=== PATIENT | female | born 1950 | race Caucasian/White ===

== ENCOUNTER 2016-08-28 12:23 | Emergency (ER) | payer OTHER ==
[2016-08-28 12:59] LABS: Bilirubin Negative (Negative); Blood, Urine Moderate (Negative); Glucose, Urine (Dipstick) Negative (Negative); Leukocyte Small (Negative); Nitrite Negative (Negative); Protein, Urine (Dipstick) Negative (Neg-Trace); Urobilinogen 0.2 mg/dL (0.2-1.0)
[2016-08-28 13:02] LABS: Clarity Slightly Cloudy (Clear)
[2016-08-28 13:03] LABS: Bacteria/HPF 1+ HPF (None Seen); WBC/HPF 21-50 HPF (0-3)
--- NOTE | 2016-08-28 13:56 | PICIS ---
[facility] EMERGENCY RECORD TRIAGE (FriAug 28, 2016 12:29 AWAT) TRIAGE NOTES: R/O RIGHT EAR PAIN, AND RIGH SIDE OF FACE, AND THROAT, AND UTI S/S, ONSET YESTERDAY. (FriAug 28, 2016 12:29 AWAT) PATIENT: NAME: Lisseth Maurice, AGE: 66, GENDER: female, : Fri1950, TIME OF GREET: FriAug 28, 2016 12:25, PREFERRED LANGUAGE: Croatian, ETHNICITY: Not or , FALL RISK: NO, ECODE BILLING MAP: [facility], SSN: [id number], Zip Code: [address], KG WEIGHT: [phone], PHONE: , , , PERSON ID: [id number], PCP: MD Shay Olayemi. (FriAug 28, 2016 12:29 AWAT) COMPLAINT: RT EAR & FACE PAIN,POSS BLADDER INFECTION. (FriAug 28, 2016 12:29 AWAT) ADMISSION: URGENCY: 4 Non Urgent, ADMISSION SOURCE: Home, TRANSPORT: Walk-in, BED: TRIAGE. (FriAug 28, 2016 12:29 AWAT) IMMUNIZATIONS: Flu vaccine up to date, Tetanus not up to date, Pneumococcal vaccine up to date. (12:36 AWAT) SIRS SCORING: Heart Rate 55-109 (0), Temp range 96.8-101.1 (0), respiratory rate 12-24 (0), Mental Status altered: no (0). (12:36 AWAT) TRIAGE SCREENING: Patient denies suicidal ideation, Patient denies presence of domestic violence. (12:36 AWAT) TREATMENTS IN PROGRESS: Treatments given Prehospital: TYLENOL 500MG X 2. (12:36 AWAT) PROVIDERS: TRIAGE NURSE: Pieter Lindsey RN. (FriAug 28, 2016 12:29 AWAT) PREVIOUS VISIT ALLERGIES: Hydromorphone. (FriAug 28, 2016 12:29 AWAT) Hydromorphone. (12:36 AWAT) KNOWN ALLERGIES hydromorphone: Reaction: Nausea CURRENT MEDICATIONS lisinopril: TABLET : Strength - 20 mg : ORAL Patient Dose: 1 tab(s) Oral 2 times a day. (12:30 AWAT) Lasix: TABLET : Strength - 20 mg : ORAL Patient Dose: 1 tab(s) Oral 2 times a day. (12:30 AWAT) nitroglycerin: TABLET, SUBLINGUAL : Strength - 0.4 mg : SUBLINGUAL Patient Dose: 1 tab(s) Sublingual As Needed. (12:30 AWAT) Ventolin HFA: HFA AEROSOL WITH ADAPTER (GRAM) : Strength - 90 mcg : INHALATION Patient Dose: 2 puff(s) Oral every 4 hours prn. (12:30 AWAT) Spiriva with HandiHaler: CAPSULE, WITH INHALATION DEVICE : Strength - 18 mcg : INHALATION Patient Dose: 1 cap(s) Nebulize once a day (in the &a-1R&a+25V*p+0X*i7710D*c202B*c15G*c2P*p-0X&a-25V&a+1R Name: Lisseth Maurice : 1950 F66 MedRec: [id number] AcctNum: [id number] Prepared: FriAug 28, 2016 14:37 by Interface Page 1 of 7 pMD [facility] EMERGENCY RECORD morning). (12:30 AWAT) meTOPROLOL tartrate: TABLET : Strength - 100 mg : ORAL Patient Dose: 1 tab(s) Oral once a day. (12:31 AWAT) hydrochlorothiazide: TABLET : Strength - 25 mg : ORAL Patient Dose: 1 tab(s) Oral once a day. (12:31 AWAT) glipiZIDE: TABLET : Strength - 10 mg : ORAL Patient Dose: Unknown. (12:40 AWAT) TABLET : Strength - 5 mg : ORAL Patient Dose: 1 tab(s) Oral once a day. (12:40 AWAT) VITAL SIGNS (12:31 AWAT) VITAL SIGNS: BP: 195/60, Pulse: 52, Resp: 18, Temp: 97.1 (Tympanic), Pain: 9, O2 sat: 96 on Room Air, Time: 08/28/2016 12:31. NURSING ASSESSMENT: ENT (12:37 AWAT) PAIN: throbbing pain, to the right ear, constant, on a scale 0-10 patient rates pain as 9, Pain exacerbated by, cough. ENT: Ear assessment findings include ear normal to inspection, Mouth and throat assessment findings include mouth inspection normal, no associated fever. RESPIRATORY/CHEST: Breath sounds clear, Respiratory assessment findings include respiratory effort easy, Respirations regular, Conversing normally, Neck and chest exam findings include trachea midline, Chest expansion equal, Chest movement symmetrical, no signs of distress, Associated with cough, dry, no associated fever. SAFETY: Side rails up, Cart/Stretcher in lowest position, Family at bedside, Call light within reach, Hospital ID band on. NURSING ASSESSMENT: GENITOURINARY (12:36 AWAT) CONSTITUTIONAL: Patient arrives ambulatory, Gait steady, History obtained from patient, Patient appears comfortable, Patient cooperative, Patient alert, Oriented to person, place and time, Skin warm, Skin dry, Patient complains of FREQUENCY, SPASM, CALL AFTER URINATION. GENITOURINARY FEMALE: Associated with urinary complaints, burning, frequency. SAFETY: Side rails up, Cart/Stretcher in lowest position, Family at bedside, Call light within reach, Hospital ID band on. NURSING PROCEDURE: BEDSIDE TESTING (13:27 ER) PATIENT IDENTIFIER: Patient actively involved in identification process, Patient's identity verified by patient stating name, Patient's identity verified by patient stating date. GLUCOSE: Glucose testing indicated for diabetic patient, Venous &a-1R&a+25V*p+0X*j0330W*c202B*c15G*c2P*p-0X&a-25V&a+1R Name: Lisseth Maurice : 1950 F66 MedRec: [id number] AcctNum: [id number] Prepared: FriAug 28, 2016 14:37 by Interface Page 2 of 7 pMD [facility] EMERGENCY RECORD blood sample, Result (mg/dl) 137. Glucose testing indicated for diabetic patient, Venous blood sample, Result (mg/dl) 137. NURSING PROCEDURE: DISCHARGE NOTE (13:31 ER) DISCHARGE: Patient discharged to home, ambulating without assistance, driving self, accompanied by friend, Summary of Care printed/ provided, Discharge instructions given to patient, Simple or moderate discharge teaching performed, Prescriptions given and instructions on side effects given, Name of prescription(s) given: CIPRO,CORTISPORIN OTIC, PYRIDIUM, ULTRAM, Above person(s) verbalized understanding of discharge instructions and follow-up care. BELONGINGS: Belongings remain with patient, Valuables remain with patient. NURSING PROCEDURE: NURSE NOTES (12:42 ER) NURSES NOTES: Notes: PATIENT TRIAGED, AND ASSESSMENT DONE BY STAN SMITH, CHARTED BY MISTAKE UNDER PIETER RN NAME. ORDER DETAILS Order Name: BLOOD GLUCOSE MONITOR, Status: Done, Time: 13:33 08/28/2016, User: ER, - Ordered for: MD Melton Stanley, - Entered by: MD Melton Stanley - [facility] Aug 28, 2016 13:19, - Quantity: 1, Order Name: Culture, Urine, Status: Active, Time: 12:29 08/28/2016, User: YUE, - Ordered for: MD Melton Stanley, - Entered by: MD Melton Stanley - [facility] Aug 28, 2016 12:29, - Quantity: 1, Order Name: Urinalysis w/ Rflx Microscopic, Status: Active, Time: 12:29 08/28/2016, User: YUE, - Ordered for: MD Melton Stanley, - Entered by: MD Melton Stanley - [facility] Aug 28, 2016 12:29, - Quantity: 1. HPI EAR PAIN (12:41 YUE) CHIEF COMPLAINT: Patient presents for evaluation of pain, to the right ear, Patient presents for evaluation of c/o right ear pain and pain on urinating. HISTORIAN: History provided by patient, History provided by patient's family. TIME COURSE: going on for 2 or 3 days; was recently on augmentin for bronchtitis. EXACERBATED BY: Patient's condition exacerbated by nothing. RELIEVED BY: Patient's condition relieved by nothing. ROS CONSTITUTIONAL: Negative constitutional review of systems, &a-1R&a+25V*p+0X*y0439L*c202B*c15G*c2P*p-0X&a-25V&a+1R Name: Lisseth Maurice : 1950 F66 MedRec: [id number] AcctNum: [id number] Prepared: FriAug 28, 2016 14:37 by Interface Page 3 of 7 pMD [facility] EMERGENCY RECORD Historian denies chills, denies fever. (12:42 SHAN) EYES: Negative eye review of systems. (12:42 SHAN) ENT: right ear pain. (12:42 SHAN) CARDIOVASCULAR: Negative cardiovascular review of systems, Historian denies chest pain, denies palpitations. (12:42 SHAN) RESPIRATORY: Negative respiratory review of systems, Historian denies cough, denies shortness of breath. (12:42 SHAN) GI: Negative gastrointestinal review of systems, Historian denies abdominal pain, denies constipation, denies diarrhea. (12:42 SHAN) GENITOURINARY FEMALE: c/o pain on urinating. (12:43 SHAN) MUSCULOSKELETAL: Negative musculoskeletal review of systems. (12:42 SHAN) SKIN: Negative skin review of systems. (12:42 SHAN) NEUROLOGIC: Negative neurologic review of systems. (12:42 SHAN) ENDOCRINE: Negative endocrine review of systems. (12:42 SHAN) HEMO/LYMPHATIC: Normal hematologic/lymphatic system review. (12:42 SHAN) PSYCHIATRIC: Negative psychiatric review of systems. (12:42 SHAN) NOTES: All other ROS is negative except as listed in HPI. (12:42 SHAN) PAST MEDICAL HISTORY MEDICAL HISTORY: Past medical history includes history of diabetes, Notes: DIVERTICULITIS, Past medical history includes cardiac history, congestive heart failure, Past medical history includes history of hypertension, which has been treated, Past medical history includes pulmonary disease, chronic obstructive pulmonary disease, emphysema. 08/28/15. (12:36 AWAT) FEMALE SURGICAL HISTORY: CARDIAC STENT X2. PINS LEFT ARM, Surgical history of hysterectomy. 08/28/16. (12:36 AWAT) PSYCHIATRIC HISTORY: Notes: DEPRESSION. 08/28/16. (12:36 AWAT) SOCIAL HISTORY: Patient drinks socially, Patient denies drug use, Patient currently uses tobacco, smokes cigarettes, daily, Patient smokes 1 pack per day. (12:36 AWAT) NOTES: I have reviewed and agree with the PMH/PSxH/FamHx/SocHx obtained by the nurse. (12:42 SHAN) PHYSICAL EXAM (12:42 SHAN) CONSTITUTIONAL: Vital signs reviewed, Patient appears non toxic, Patient alert and oriented to person, place and time, Pt is in no apparent distress. HEAD: Head exam included findings of head atraumatic, normocephalic. EYES: Eye exam included findings of eyelids normal to inspection, Pupils equally round and reactive to light, Extraocular muscles intact. ENT: Nose exam normal, no nasal deformity, no bleeding from nares, Pharynx exam normal, Mouth exam normal, mucous membranes &a-1R&a+25V*p+0X*r7273U*c202B*c15G*c2P*p-0X&a-25V&a+1R Name: Lisseth Maurice : 1950 F66 MedRec: [id number] AcctNum: [id number] Prepared: FriAug 28, 2016 14:37 by Interface Page 4 of 7 pMD [facility] EMERGENCY RECORD moist, right tm dulled; a little red; right ear canal with redness also though. NECK: Neck exam included findings of normal range of motion, Trachea midline. RESPIRATORY CHEST: Respiratory and chest exam normal, Breath sounds clear, No wheezing, No rales, Chest exam included findings of chest movement symmetrical, Chest expansion equal. CARDIOVASCULAR: Cardiovascular assessment normal, Cardiovascular exam included findings of heart rate regular rate and rhythm, Heart sounds normal. ABDOMEN FEMALE: Abdominal exam included findings of abdomen nontender, Bowel sounds normal, no mass, no pulsatile masses, no peritoneal signs. BACK: Back exam included findings of normal inspection, range of motion normal, no costovertebral angle tenderness. UPPER EXTREMITY: Upper extremity exam included findings of inspection normal, Range of motion normal. LOWER EXTREMITY: Lower extremity exam included findings of inspection normal, Range of motion normal. NEURO: Neuro exam findings include patient oriented to person, place and time, Speech normal, no focal motor deficits, no focal sensory deficits. SKIN: Skin exam included findings of skin warm, dry, and normal in color. LYMPHATIC: Lymphatic exam normal. PSYCHIATRIC: Psychiatric exam included findings of patient oriented to person place and time, Normal affect. EVENTS TRANSFER: Triage to Emergency Triage. (12:29 AWAT) Emergency Triage to Main ED -04. (12:34 AWAT) Removed from Emergency Main ED -04. (13:38 ER) DOCTOR NOTES (13:19 SHAN) TEXT: Polyuria, dysuria, diabetic, right ear pain. Recent augmentin treatment. Ua is abnormal; right canal and rodri suspicious for infection. PATIENT PLAN: The patient will be discharged. DATA REVIEWED: Lab data reviewed. PROBLEM LIST No recorded problems DIAGNOSIS (13:21 SHAN) FINAL: PRIMARY: UTI, ADDITIONAL: right purulent otitis media. DISPOSITION PATIENT: Disposition Type: Discharge, Disposition: *Discharge Home. (13:21 SHAN) &a-1R&a+25V*p+0X*h5416J*c202B*c15G*c2P*p-0X&a-25V&a+1R Name: Lisseth Maurice : 1950 F66 MedRec: [id number] AcctNum: [id number] Prepared: FriAug 28, 2016 14:37 by Interface Page 5 of 7 pMD [facility] EMERGENCY RECORD Patient left the department. (13:37 ER) INSTRUCTION (13:25 SHAN) DISCHARGE: URINARY TRACT INFECTION CYSTITIS FEMALE ADULT, OTITIS MEDIA, ABX TX (ADULT). FOLLOWUP: MD Laurita, Isabell, [facility], [address] [place] [address], . SPECIAL: 1. antibiotic as directed; take until gone 2. urine numbing pill three times a day until gone; expect urine to be orange. 3. followup with regular provider in a few days 4. return if problems worsen 5. note that a culture was set up and there is always a chance that a different antibiotic might be needed later. PRESCRIPTION Cipro tablet: TABLET : 500 mg : ORAL : Quantity: 1 Unit: tab(s) Route: ORAL Schedule: 2 times a day Dispense: 14 Unit: tab(s) May substitute. Refills: No Refills . (13:) NOTES: No Refills. (13: SHAN) Cortisporin otic: SOLUTION, NON-ORAL : 3.5 mg/mL-10,000 unit/mL-1 % : OTIC : Quantity: 2 Unit: gtt Route: OTIC Schedule: 4 times a day Dispense: 1 Unit: units May substitute. Refills: No Refills . (13:21 SHAN) NOTES: dispense 1 bottle No Refills. (13:21 SHAN) Pyridium: TABLET : 200 mg : ORAL : Quantity: 1 Unit: tab(s) Route: ORAL Schedule: 3 times a day Dispense: 9 Unit: tab(s) May substitute. Refills: No Refills . (13:22 SHAN) NOTES: expect urine to turn orange No Refills. (13:22 SHAN) Ultram: TABLET : 50 mg : ORAL : Quantity: 1 Unit: tab(s) Route: ORAL Schedule: every 6 hours PRN Dispense: 15 Unit: tab(s) May substitute. Refills: No Refills . (13:23 SHAN) NOTES: one up to every six hours if needed for pain; use sparingly No Refills. (13:23 SHAN) IMAGING (13:35 ER) *DISCHARGE INSTRUCTIONS RECEIPT: Image captured from scanner. Page 2 added. Image captured from scanner. *SUPPLY CHARGE SHEET: Image captured from scanner. ADMIN (14:26 SHAN) DIGITAL SIGNATURE: MD Melton Stanley. RESULTS &a-1R&a+25V*p+0X*s8654H*c202B*c15G*c2P*p-0X&a-25V&a+1R Name: Lisseth Maurice : 1950 F66 MedRec: [id number] AcctNum: [id number] Prepared: FriAug 28, 2016 14:37 by Interface Page 6 of 7 pMD [facility] EMERGENCY RECORD LABORATORY: Urine Microscopic Collection DT: FriAug 28, 2016 12:56, *RBC/HPF 7-10 - H HPF, Range (0-3), *WBC/HPF 21-50 - H HPF, Range (0-3), *Squamous Epithelial 7-10 - H HPF, Range (0-3), *Bacteria/HPF 1+ - H HPF, Range (None Seen). (13:13 SHAN) Urinalysis w/ Rflx Microscopic Collection DT: FriAug 28, 2016 12:56, Color Yellow , Range (Yellow), Clarity Slightly Cloudy , Range (Clear), Specific Patterson, Urine 1.010 , Range (1.005-1.030), pH, Urine 6.0 , Range (5.0-9.0), *Leukocyte Small - H , Range (Negative), Nitrite Negative , Range (Negative), Protein, Urine (Dipstick) Negative mg/dL, Range (Neg-Trace), Glucose, Urine (Dipstick) Negative mg/dL, Range (Negative), Ketone, Urine Negative mg/dL, Range (Negative), Urobilinogen 0.2 mg/dL, Range (0.2-1.0), Bilirubin Negative , Range (Negative), *Blood, Urine Moderate - H , Range (Negative). (13:13 YUE) Accuchek Collection DT: FriAug 28, 2016 13:31, *Accuchek 137 - H mg/dL, Range (70-110). (13:36 YUE) Otoole: BOUCHRA=STAN Lindsey, Pieter ER=Kymberly Schmitt=MD Linh, Koby &a-1R&a+25V*p+0X*l9583R*c202B*c15G*c2P*p-0X&a-25V&a+1R Name: Lisseth Maurice : 1950 F66 MedRec: [id number] AcctNum: [id number] Prepared: FriAug 28, 2016 14:37 by Interface Page 7 of 7 pMD MTDD
--- NOTE | 2016-08-28 14:02 | ERRECORD ---
[facility] EMERGENCY RECORD HPI EAR PAIN (12:41 SHAN) CHIEF COMPLAINT: Patient presents for evaluation of pain, to the right ear, Patient presents for evaluation of c/o right ear pain and pain on urinating. HISTORIAN: History provided by patient, History provided by patient's family. TIME COURSE: going on for 2 or 3 days; was recently on augmentin for bronchtitis. EXACERBATED BY: Patient's condition exacerbated by nothing. RELIEVED BY: Patient's condition relieved by nothing. ROS CONSTITUTIONAL: Negative constitutional review of systems, Historian denies chills, denies fever. (12:42 SHAN) EYES: Negative eye review of systems. (12:42 SHAN) ENT: right ear pain. (12:42 SHAN) CARDIOVASCULAR: Negative cardiovascular review of systems, Historian denies chest pain, denies palpitations. (12:42 SHAN) RESPIRATORY: Negative respiratory review of systems, Historian denies cough, denies shortness of breath. (12:42 SHAN) GI: Negative gastrointestinal review of systems, Historian denies abdominal pain, denies constipation, denies diarrhea. (12:42 SHAN) GENITOURINARY FEMALE: c/o pain on urinating. (12:43 SHAN) MUSCULOSKELETAL: Negative musculoskeletal review of systems. (12:42 SHAN) SKIN: Negative skin review of systems. (12:42 SHAN) NEUROLOGIC: Negative neurologic review of systems. (12:42 SHAN) ENDOCRINE: Negative endocrine review of systems. (12:42 SHAN) HEMO/LYMPHATIC: Normal hematologic/lymphatic system review. (12:42 SHAN) PSYCHIATRIC: Negative psychiatric review of systems. (12:42 SHAN) NOTES: All other ROS is negative except as listed in HPI. (12:42 SHAN) PAST MEDICAL HISTORY MEDICAL HISTORY: Past medical history includes history of diabetes, Notes: DIVERTICULITIS, Past medical history includes cardiac history, congestive heart failure, Past medical history includes history of hypertension, which has been treated, Past medical history includes pulmonary disease, chronic obstructive pulmonary disease, emphysema. 08/28/15. (12:36 AWAT) FEMALE SURGICAL HISTORY: CARDIAC STENT X2. PINS LEFT ARM, Surgical history of hysterectomy. 08/28/16. (12:36 AWAT) PSYCHIATRIC HISTORY: Notes: DEPRESSION. 08/28/16. (12:36 AWAT) SOCIAL HISTORY: Patient drinks socially, Patient denies drug use, Patient currently uses tobacco, smokes cigarettes, daily, Patient smokes 1 pack per day. (12:36 AWAT) NOTES: I have reviewed and agree with the PMH/PSxH/FamHx/SocHx &a-1R&a+25V*p+0X*w9963P*c202B*c15G*c2P*p-0X&a-25V&a+1R Name: Lisseth Maurice : 1950 F66 MedRec: [id number] AcctNum: [id number] Prepared: FriAug 28, 2016 14:31 by Interface Page 1 of 4 pMD [facility] EMERGENCY RECORD obtained by the nurse. (12:42 SHAN) KNOWN ALLERGIES hydromorphone: Reaction: Nausea CURRENT MEDICATIONS lisinopril: TABLET : Strength - 20 mg : ORAL Patient Dose: 1 tab(s) Oral 2 times a day. (12:30 AWAT) Lasix: TABLET : Strength - 20 mg : ORAL Patient Dose: 1 tab(s) Oral 2 times a day. (12:30 AWAT) nitroglycerin: TABLET, SUBLINGUAL : Strength - 0.4 mg : SUBLINGUAL Patient Dose: 1 tab(s) Sublingual As Needed. (12:30 AWAT) Ventolin HFA: HFA AEROSOL WITH ADAPTER (GRAM) : Strength - 90 mcg : INHALATION Patient Dose: 2 puff(s) Oral every 4 hours prn. (12:30 AWAT) Spiriva with HandiHaler: CAPSULE, WITH INHALATION DEVICE : Strength - 18 mcg : INHALATION Patient Dose: 1 cap(s) Nebulize once a day (in the morning). (12:30 AWAT) meTOPROLOL tartrate: TABLET : Strength - 100 mg : ORAL Patient Dose: 1 tab(s) Oral once a day. (12:31 AWAT) hydrochlorothiazide: TABLET : Strength - 25 mg : ORAL Patient Dose: 1 tab(s) Oral once a day. (12:31 AWAT) glipiZIDE: TABLET : Strength - 10 mg : ORAL Patient Dose: Unknown. (12:40 AWAT) TABLET : Strength - 5 mg : ORAL Patient Dose: 1 tab(s) Oral once a day. (12:40 AWAT) VITAL SIGNS (12:31 AWAT) VITAL SIGNS: BP: 195/60, Pulse: 52, Resp: 18, Temp: 97.1 (Tympanic), Pain: 9, O2 sat: 96 on Room Air, Time: 08/28/2016 12:31. PHYSICAL EXAM (12:42 SHAN) CONSTITUTIONAL: Vital signs reviewed, Patient appears non toxic, Patient alert and oriented to person, place and time, Pt is in no apparent distress. HEAD: Head exam included findings of head atraumatic, normocephalic. EYES: Eye exam included findings of eyelids normal to inspection, Pupils equally round and reactive to light, Extraocular muscles intact. ENT: Nose exam normal, no nasal deformity, no bleeding from &a-1R&a+25V*p+0X*o3684E*c202B*c15G*c2P*p-0X&a-25V&a+1R Name: Lisseth Maurice : 1950 F66 MedRec: [id number] AcctNum: [id number] Prepared: FriAug 28, 2016 14:31 by Interface Page 2 of 4 pMD [facility] EMERGENCY RECORD nares, Pharynx exam normal, Mouth exam normal, mucous membranes moist, right tm dulled; a little red; right ear canal with redness also though. NECK: Neck exam included findings of normal range of motion, Trachea midline. RESPIRATORY CHEST: Respiratory and chest exam normal, Breath sounds clear, No wheezing, No rales, Chest exam included findings of chest movement symmetrical, Chest expansion equal. CARDIOVASCULAR: Cardiovascular assessment normal, Cardiovascular exam included findings of heart rate regular rate and rhythm, Heart sounds normal. ABDOMEN FEMALE: Abdominal exam included findings of abdomen nontender, Bowel sounds normal, no mass, no pulsatile masses, no peritoneal signs. BACK: Back exam included findings of normal inspection, range of motion normal, no costovertebral angle tenderness. UPPER EXTREMITY: Upper extremity exam included findings of inspection normal, Range of motion normal. LOWER EXTREMITY: Lower extremity exam included findings of inspection normal, Range of motion normal. NEURO: Neuro exam findings include patient oriented to person, place and time, Speech normal, no focal motor deficits, no focal sensory deficits. SKIN: Skin exam included findings of skin warm, dry, and normal in color. LYMPHATIC: Lymphatic exam normal. PSYCHIATRIC: Psychiatric exam included findings of patient oriented to person place and time, Normal affect. DOCTOR NOTES (:19 ) TEXT: Polyuria, dysuria, diabetic, right ear pain. Recent augmentin treatment. Ua is abnormal; right canal and rodri suspicious for infection. PATIENT PLAN: The patient will be discharged. DATA REVIEWED: Lab data reviewed. PROBLEM LIST No recorded problems DIAGNOSIS (:) FINAL: PRIMARY: UTI, ADDITIONAL: right purulent otitis media. PRESCRIPTION Cipro tablet: TABLET : 500 mg : ORAL : Quantity: 1 Unit: tab(s) Route: ORAL Schedule: 2 times a day Dispense: 14 Unit: tab(s) May substitute. Refills: No Refills . (:) NOTES: No Refills. (:) Cortisporin otic: SOLUTION, NON-ORAL : 3.5 mg/mL-10,000 &a-1R&a+25V*p+0X*e3600R*c202B*c15G*c2P*p-0X&a-25V&a+1R Name: Lisseth Maurice : 1950 F66 MedRec: [id number] AcctNum: [id number] Prepared: FriAug 28, 2016 14:31 by Interface Page 3 of 4 pMD [facility] EMERGENCY RECORD unit/mL-1 % : OTIC : Quantity: 2 Unit: gtt Route: OTIC Schedule: 4 times a day Dispense: 1 Unit: units May substitute. Refills: No Refills . (: SHAN) NOTES: dispense 1 bottle No Refills. (: SHAN) Pyridium: TABLET : 200 mg : ORAL : Quantity: 1 Unit: tab(s) Route: ORAL Schedule: 3 times a day Dispense: 9 Unit: tab(s) May substitute. Refills: No Refills . (: SHAN) NOTES: expect urine to turn orange No Refills. (: SHAN) Ultram: TABLET : 50 mg : ORAL : Quantity: 1 Unit: tab(s) Route: ORAL Schedule: every 6 hours PRN Dispense: 15 Unit: tab(s) May substitute. Refills: No Refills . (13:23 YUE) NOTES: one up to every six hours if needed for pain; use sparingly No Refills. (13:23 YUE) DISPOSITION PATIENT: Disposition Type: Discharge, Disposition: *Discharge Home. (13:21 YUE) Patient left the department. (13:37 ER) Otoole: AWAT=STAN Lindsey, Pieter ER=Kymberly Schmitt=MD Linh, Koby &a-1R&a+25V*p+0X*b1353N*c202B*c15G*c2P*p-0X&a-25V&a+1R Name: Lisseth Maurice : 1950 F66 MedRec: [id number] AcctNum: [id number] Prepared: FriAug 28, 2016 14:31 by Interface Page 4 of 4 pMD MTDD
== END 2016-08-28 13:31 | disposition home or self-care (01) ==
LOC: MADERS 12:23
DX: H66.41 Suppurative otitis media, unspecified, right ear (principal); N39.0 Urinary tract infection, site not specified; F17.210 Nicotine dependence, cigarettes, uncomplicated; E11.9 Type 2 diabetes mellitus without complications; I11.0 Hypertensive heart disease with heart failure; I50.9 Heart failure, unspecified; J44.9 Chronic obstructive pulmonary disease, unspecified
CPT/HCPCS: 36416; 81003; 81015; 87077; 87086; 87186; 99283

== ENCOUNTER 2016-11-06 09:04 | Outpatient (CLI) | payer OTHER | END 2016-11-06 09:05 | LOC: MADLABBHPM 09:04 | PROVIDERS: ATTEND Family Medicine | DX: E78.5 Hyperlipidemia, unspecified (principal); E11.9 Type 2 diabetes mellitus without complications; F32.9 Major depressive disorder, single episode, unspecified | CPT/HCPCS: 36415; 87086 ==

== ENCOUNTER 2016-11-13 20:06 | Outpatient (CLI) | payer OTHER ==
[2016-11-13 20:52] LABS: #Basophils 0.1 thou/uL (0.0-0.2); #Eosinphils 0.3 thou/uL (0.0-0.7); #Monocytes 0.6 thou/uL (0.11-0.59); #Neutrophils 6.9 thou/uL (1.40-6.50); %Basophils 0.9 % (0.0-1.0); %Eosinophils 2.6 % (0.0-10.0); %Lymphocytes 33.7 % (21.0-51.0); %Monocytes 4.9 % (0.0-10.0); Hemoglobin 15.8 g/dL (12.0-16.0); Mean Corpuscular HGB CONC 32.9 g/dL (32.0-36.0); Mean Corpuscular Hemoglobin 30.8 pg (27.0-31.0); Mean Corpuscular Volume 93.5 fl (81.0-99.0); Mean Platelet Volume 11.1 fL (7.4-10.4); Platelet Count 210 thou/uL (130-400); RBC Distribution Width 12.8 % (11.5-14.5); Red Blood Cell (RBC) Count 5.13 mill/uL (4.20-5.40); White Blood Cell (WBC) Count 11.9 thou/uL (4.8-10.8)
[2016-11-13 21:07] LABS: ALT (SGPT) 26 U/L (0-55); AST (SGOT) 16 U/L (5-34); Albumin 4.1 g/dL (3.4-4.8); Alkaline Phosphatase 103 U/L (40-150); Anion Gap 16 mmol/L (10-20); BUN (Urea Nitrogen) 27 mg/dL (9.8-20.1); Bilirubin, Total 0.3 mg/dL (0.2-1.2); Calc. Creatinine Clearance 0 mL/min (70-130); Calcium 9.9 mg/dL (7.8-10.44); Carbon Dioxide 24 mmol/L (23-31); Cardiac Risk 4.1 (Less than 4.5); Chloride 103 mmol/L (98-107); Cholesterol 146 mg/dL (< 200 Desired); Estimated GFR-MDRD 50; Glucose 146 mg/dL (80-115); HDL Cholesterol 36 mg/dL (>60 Neg Risk); LDL Cholesterol, Calculated 77 mg/dL; Protein, Total 7.1 g/dL (5.8-8.1); Sodium 138 mmol/L (136-145); Triglycerides 166 mg/dL (Less than 150)
[2016-11-13 21:08] LABS: Hemoglobin A1c 8.4 % (4.0-6.0)
[2016-11-13 22:34] LABS: Free T4 (Free Thyroxine) 0.92 ng/dL (0.70-1.48); Thyroid Stimulating Hormone 1.3393 uIU/mL (0.35-4.94)
== END 2016-11-13 20:07 | disposition home or self-care (01) ==
LOC: MADLABBHPM 20:06
PROVIDERS: ATTEND Family Medicine
DX: E78.5 Hyperlipidemia, unspecified (principal); E11.9 Type 2 diabetes mellitus without complications; F32.9 Major depressive disorder, single episode, unspecified; I10 Essential (primary) hypertension
CPT/HCPCS: 36415; 80053; 80061; 83036; 84439; 84443; 85025

== ENCOUNTER 2016-11-18 06:49 | Emergency (ER) | payer OTHER ==
[2016-11-18] MEDS ORDERED: Aspirin 325 MG TAB ONE (07:20)
[2016-11-18 07:22] LABS: #Basophils 0.1 thou/uL (0.0-0.2); #Eosinphils 0.4 thou/uL (0.0-0.7); #Lymphocytes 5.6 thou/uL (1.20-3.40); #Monocytes 0.9 thou/uL (0.11-0.59); #Neutrophils 7.3 thou/uL (1.40-6.50); %Basophils 0.7 % (0.0-1.0); %Eosinophils 2.5 % (0.0-10.0); %Lymphocytes 39.2 % (21.0-51.0); %Monocytes 6.5 % (0.0-10.0); %Neutrophils 51.1 % (42.0-75.0); Hemoglobin 16.3 g/dL (12.0-16.0); Mean Corpuscular Hemoglobin 30.6 pg (27.0-31.0); Mean Corpuscular Volume 92.5 fl (81.0-99.0); Mean Platelet Volume 11.1 fL (7.4-10.4); Platelet Count 208 thou/uL (130-400); RBC Distribution Width 12.5 % (11.5-14.5); Red Blood Cell (RBC) Count 5.32 mill/uL (4.20-5.40); White Blood Cell (WBC) Count 14.2 thou/uL (4.8-10.8)
[2016-11-18 07:28] LABS: PTT 27.2 SEC (22.9-36.1); Prothrombin Time 13.1 SEC (12.0-14.7)
[2016-11-18 07:39] LABS: CKMB 1.7 ng/mL (0-6.6); Troponin I 0.016 ng/mL (< 0.028)
[2016-11-18 07:40] LABS: ALT (SGPT) 19 U/L (0-55); AST (SGOT) 13 U/L (5-34); Albumin 4.2 g/dL (3.4-4.8); Alkaline Phosphatase 121 U/L (40-150); Anion Gap 18 mmol/L (10-20); BUN (Urea Nitrogen) 26 mg/dL (9.8-20.1); Bilirubin, Total Less than 0.3 mg/dL (0.2-1.2); CK (CPK) 53 U/L (29-168); Calc. Creatinine Clearance 0 mL/min (70-130); Calcium 10.2 mg/dL (7.8-10.44); Carbon Dioxide 21 mmol/L (23-31); Chloride 106 mmol/L (98-107); Estimated GFR-MDRD 63; Globulin 3.1 g/dL (2.4-3.5); Glucose 107 mg/dL (80-115); Potassium 3.9 mmol/L (3.5-5.1); Protein, Total 7.3 g/dL (5.8-8.1); Sodium 141 mmol/L (136-145)
[2016-11-18 07:53] LABS: Bilirubin Negative (Negative); Blood, Urine Negative (Negative); Clarity Clear (Clear); Glucose, Urine (Dipstick) Negative (Negative); Leukocyte Negative (Negative); Nitrite Negative (Negative); Protein, Urine (Dipstick) Negative (Neg-Trace); Urobilinogen 0.2 mg/dL (0.2-1.0); pH, Urine 5.5 (5.0-9.0)
--- NOTE | 2016-11-18 07:55 | RAD ---
PORTABLE UPRIGHT FRONTAL CHEST RADIOGRAPH: COMPARISON: 01/25/13. HISTORY: Chest pain. FINDINGS: Cardiac silhouette is prominent, a stable finding. No pneumothorax, pleural fluid, focal consolidat ion, or alveolar edema. IMPRESSION: No acute findings. POS: PATY
[2016-11-18 07:56] LABS: Bacteria/HPF Rare-Few HPF (None Seen); RBC/HPF 0-3 HPF (0-3); Squamous Epithelial 0-3 HPF (0-3); WBC/HPF 0-3 HPF (0-3)
[2016-11-18 07:57] LABS: Other Microscopic Description C&S SET UP
== END 2016-11-18 08:39 | disposition short-term general hospital (02) ==
LOC: MADERS 06:49
DX: I25.110 Atherosclerotic heart disease of native coronary artery with unstable angina pectoris (principal); I11.0 Hypertensive heart disease with heart failure; I50.9 Heart failure, unspecified; J44.9 Chronic obstructive pulmonary disease, unspecified; E11.9 Type 2 diabetes mellitus without complications; F32.9 Major depressive disorder, single episode, unspecified; F17.210 Nicotine dependence, cigarettes, uncomplicated
CPT/HCPCS: 36415; 71010; 80053; 81003; 81015; 82553; 83735; 83880; 84484; 85025; 85610; 85730; 87086; 93005; 94760

== ENCOUNTER 2017-02-10 09:01 | Emergency (ER) | payer OTHER ==
[~2017-02-10 09:01] MED LIST: Sodium Chloride 0.9% 1,000 ML BAG ONE; Sodium Chloride 0.9% 100 ML BAG ONE
[2017-02-10] MEDS ORDERED: Ondansetron HCl/PF 4 MG/2 ML Vial ONE (09:22)
[2017-02-10 09:28] LABS: #Basophils 0.1 thou/uL (0.0-0.2); #Eosinphils 0.4 thou/uL (0.0-0.7); #Lymphocytes 3.1 thou/uL (1.20-3.40); #Monocytes 0.8 thou/uL (0.11-0.59); #Neutrophils 13.3 thou/uL (1.40-6.50); %Basophils 0.5 % (0.0-1.0); %Eosinophils 2.4 % (0.0-10.0); %Lymphocytes 17.6 % (21.0-51.0); %Monocytes 4.4 % (0.0-10.0); %Neutrophils 75.2 % (42.0-75.0); Hemoglobin 14.2 g/dL (12.0-16.0); Mean Corpuscular Hemoglobin 30.5 pg (27.0-31.0); Mean Corpuscular Volume 92.6 fl (81.0-99.0); Mean Platelet Volume 8.8 fL (7.4-10.4); Platelet Count 249 thou/uL (130-400); RBC Distribution Width 13.8 % (11.5-14.5); Red Blood Cell (RBC) Count 4.64 mill/uL (4.20-5.40); White Blood Cell (WBC) Count 17.7 thou/uL (4.8-10.8)
[2017-02-10] MEDS ORDERED: Iopamidol 370 76% 100 ML VIAL ONE (09:30)
[2017-02-10 09:50] LABS: ALT (SGPT) 20 U/L (8-55); AST (SGOT) 12 U/L (5-34); Albumin 4.1 g/dL (3.4-4.8); Alkaline Phosphatase 92 U/L (40-150); Anion Gap 15 mmol/L (10-20); BUN (Urea Nitrogen) 30 mg/dL (9.8-20.1); Bilirubin, Total 0.5 mg/dL (0.2-1.2); Calc. Creatinine Clearance 0 mL/min (70-130); Calcium 10.1 mg/dL (7.8-10.44); Carbon Dioxide 26 mmol/L (23-31); Chloride 95 mmol/L (98-107); Estimated GFR-MDRD 51; Globulin 3.5 g/dL (2.4-3.5); Glucose 208 mg/dL (80-115); Lipase 21 U/L (8-78); Protein, Total 7.6 g/dL (6.0-8.3); Sodium 131 mmol/L (136-145)
[2017-02-10 09:55] LABS: CKMB 1.3 ng/mL (0-6.6); Troponin I Less than 0.010 ng/mL (< 0.028)
--- NOTE | 2017-02-10 10:47 | CT ---
NONCONTRAST CT OF THE ABDOMEN AND PELVIS: INDICATION: Concern for possible renal stone or diverticulitis. FINDINGS: There are tiny 1 mm punctate nonobstructing renal calculi bilaterally. No hydronephrosis is evident . No definite ureteral calculus is noted. There is scattered diverticula involving the colon. There is inflammatory stranding surrounding the cecal apex without overt wall thickening or a drainable fluid collection. There is a normal append ix in the right lower quadrant. The bladder, rectum, and perirectal soft tissues are unremarkable. There is mild fatty liver. Ther e is a small left adrenal nodule. No acute osseous abnormality is evident. There is scattered degenerative and osteoarthritic change. There is a chronic-appearing wedge compression abnormality of T10 which is stable. IMPRESSION: 1. Some inflammatory stranding seen adjacent to the cecal apex may reflect epiploic appendagitis, f ocal colonic diverticulitis, or mild cecitis. No drainable fluid collection is evident. 2. Normal appendix in the right lower quadrant. 3. Nephrolithiasis without evidence of hydronephrosis. 4. Colonic diverticulosis. 5. 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 POS: [facility]
[2017-02-10] MEDS ORDERED: Piperacillin/Tazobactam 3.375 GM VIAL ONE (11:31)
--- NOTE | 2017-02-10 11:45 | CT ---
CT OF THE ABDOMEN AND PELVIS WITH IV CONTRAST: INDICATION: Abdominal pain within the right lower quadrant. CONTRAST: 100 cc of Isovue 300. COMPARISON: Recent CT exmaination dated 02/10/17 performed without contrast. FINDINGS: Lung bases are clear. There is fatty infiltration of the liver. The pancreas and right adrenal gland are normal-appearing. There is a small 1 cm nodule involving t he left adrenal gland. No focal renal lesion is evident. There are moderate calcifications involving the abdominal aorta. There is inflammatory stranding seen adjacent to the posterior aspect of the cecum without overt wal l thickening. There is a small appendage projecting near this inflammatory stranding off of the cec um, on image 59 of series 2, which may reflect an inflamed epiploic appendage versus diverticula. T here is a normal appendix in the right lower quadrant. No drainable fluid collection is evident. T here is scattered colonic diverticula. No pathologically enlarged lymph nodes are evident. Osseous structures are unchanged. IMPRESSION: 1. Persistent inflammatory stranding within the right lower quadrant with accentuated appendage see n off the posterior aspect of the cecal apex may reflect an inflamed diverticula or epiploic appenda gitis. There is a normal appendix in the right lower quadrant. There is no apparent wall thickenin g involving the cecum to suggest a cecitis. 2. Fatty infiltration of the liver. 3. Left adrenal nodule incompletely characterized on the examinatoin performation earlier without c ontrast. This has been relatively stable since 2009 and likely reflects a benign adenoma. 4. Other stable chronic findings as above. POS: [facility]
[2017-02-10 11:46] LABS: Bilirubin Negative (Negative); Blood, Urine Trace (Negative); Clarity Clear (Clear); Glucose, Urine (Dipstick) Negative (Negative); Leukocyte Negative (Negative); Nitrite Negative (Negative); Protein, Urine (Dipstick) Negative (Neg-Trace); Urobilinogen 0.2 mg/dL (0.2-1.0); pH, Urine 6.5 (5.0-9.0)
[2017-02-10 11:47] LABS: Bacteria/HPF Rare-Few HPF (None Seen); RBC/HPF 0-3 HPF (0-3); Squamous Epithelial 0-3 HPF (0-3); WBC/HPF 0-3 HPF (0-3)
== END 2017-02-10 12:00 | disposition short-term general hospital (02) ==
LOC: MADERS 09:01
DX: K57.32 Diverticulitis of large intestine without perforation or abscess without bleeding (principal); R94.31 Abnormal electrocardiogram [ECG] [EKG]; E11.9 Type 2 diabetes mellitus without complications; I11.0 Hypertensive heart disease with heart failure; I50.9 Heart failure, unspecified; J43.9 Emphysema, unspecified; F17.210 Nicotine dependence, cigarettes, uncomplicated
CPT/HCPCS: 36416; 74176; 74177; 80053; 81003; 81015; 82553; 83605; 83690; 84484; 85025; 93005; 96361; 96365; 96375; 96376; J2270; J2405; J2543; J7050

== ENCOUNTER 2020-08-21 14:10 | Outpatient (CLI) | payer MEDICARE ==
--- NOTE | 2020-08-21 15:13 | RAD ---
LUMBAR SPINE 3 VIEWS: Date: 08/21/2020 HISTORY: Back pain. FINDINGS: Lumbar vertebra maintain normal height and alignment. Disc spaces are preserved. There is anterior wedging of the T10 vertebra with loss of anterior height in the 40% range. This is age-indeterminate. The lumbar vertebra maintain normal height. Mild facet hypertrophy. Aortic calcification is prominent . IMPRESSION: 1. Mild degenerative changes of the lumbar spine. 2. Anterior wedging of the T10 vertebra. POS: [facility]
--- NOTE | 2020-08-21 15:15 | RAD ---
THORACIC SPINE 2 VIEWS: Date: 08/21/2020 HISTORY: Back pain. Recent injury. FINDINGS: There is anterior wedge deformity of the T10 vertebra with loss of anterior height in the 30-40% rang e. There is degenerative spurring at T10-T11. The other thoracic vertebra maintain normal height and alignment. When comparison is made to CT of abdomen and pelvis dated 02/10/2017, the anterior wedging of T10 jaciel tebra was present at that time. IMPRESSION: Anterior wedging of the T10 vertebra appears stable from 2017. Thoracic spine otherwise shows mild de generative change. POS: [facility]
== END 2020-08-21 14:11 | disposition home or self-care (01) ==
LOC: MADRAD 14:10
PROVIDERS: ATTEND Family Medicine
DX: M54.42 Lumbago with sciatica, left side (principal); M53.3 Sacrococcygeal disorders, not elsewhere classified; M54.6 Pain in thoracic spine; M47.814 Spondylosis without myelopathy or radiculopathy, thoracic region; M47.816 Spondylosis without myelopathy or radiculopathy, lumbar region
CPT/HCPCS: 72070; 72100